=== PATIENT | female | born 1970 | race Two or more races ===

== ENCOUNTER 2017-08-20 14:16 | Outpatient (CLI) | payer MEDICARE, BC | END 2017-08-20 23:59 | disposition home or self-care (01) | LOC: WOU 14:16 | PROVIDERS: ATTEND Specialist | DX: E11.52 Type 2 diabetes mellitus with diabetic peripheral angiopathy with gangrene (principal); E11.621 Type 2 diabetes mellitus with foot ulcer; L97.421 Non-pressure chronic ulcer of left heel and midfoot limited to breakdown of skin; L97.528 Non-pressure chronic ulcer of other part of left foot with other specified severity; L97.411 Non-pressure chronic ulcer of right heel and midfoot limited to breakdown of skin; E11.42 Type 2 diabetes mellitus with diabetic polyneuropathy; Z98.84 Bariatric surgery status; Z98.62 Peripheral vascular angioplasty status; Z89.429 Acquired absence of other toe(s), unspecified side; E11.22 Type 2 diabetes mellitus with diabetic chronic kidney disease; N18.6 End stage renal disease; Z99.2 Dependence on renal dialysis; Z79.899 Other long term (current) drug therapy | CPT/HCPCS: 11042; 82962; A6402 ==